=== PATIENT | female | born 1935 | race Caucasian/White ===

== ENCOUNTER → 2019-07-24 | Outpatient (CLI) | payer MEDICARE, OTHER ==
[2019-07-24 09:35] LABS: CREATININE 0.8 mg/dL (0.6-1.0)
== END ==
LOC: CAT 08:42
PROVIDERS: Internal Medicine
DX: I71.4 Abdominal aortic aneurysm, without rupture (principal); I25.10 Atherosclerotic heart disease of native coronary artery without angina pectoris; J98.11 Atelectasis; M48.56XA Collapsed vertebra, not elsewhere classified, lumbar region, initial encounter for fracture; M47.816 Spondylosis without myelopathy or radiculopathy, lumbar region; K76.9 Liver disease, unspecified; N28.1 Cyst of kidney, acquired